=== PATIENT | female | born 1960 | race Caucasian/White ===

== ENCOUNTER → 2019-03-03 07:30 | Outpatient (CLI) | payer OTHER, SELFPAY ==
[2019-03-03 07:59] LABS: Basophils % 0.5 % (0.1-2.0); Eosinophils # 0.1 K/mm3 (0.0-0.4); Eosinophils % 1.9 % (0.1-12.0); Hematocrit 43.1 % (37.0-47.0); Hemoglobin 14.1 g/dL (12.2-16.2); Lymphocytes # 1.6 K/mm3 (0.7-4.5); Lymphocytes % 36.6 % (10-50); Mean Corpuscular HGB Conc 32.6 g/dL (31.8-35.4); Mean Corpuscular Hemoglobin 29.8 pg (27.0-31.2); Mean Corpuscular Volume 91.5 fl (81-99); Mean Platelet Volume 8.6 fl (7.4-10.4); Monocytes # 0.4 K/mm3 (0.1-1.0); Monocytes % 8.2 % (1.7-9.3); Neutrophils # 2.2 K/mm3 (1.8-7.8); Neutrophils % 52.7 % (37.0-80.0); Platelet Count 222 K/mm3 (142-424); Red Blood Count 4.72 M/mm3 (4.20-5.40); Red Cell Distribution Width 12.9 % (11.5-17.5); White Blood Count 4.3 K/mm3 (4.8-10.8)
[2019-03-03 08:50] LABS: Alanine Aminotransferase 33 U/L (12-78); Albumin Level 3.6 gm/dL (3.4-5.0); Albumin/Globulin Ratio 1.2 (1.1-1.8); Alkaline Phosphatase 100 U/L (46-116); Anion Gap 9.2 mEq/L (5-15); Aspartate Amino Transferase 18 U/L (15-37); Bilirubin,Total 0.4 mg/dL (0.2-1.0); Blood Urea Nitrogen 22 mg/dL (7-18); Carbon Dioxide 32 mmol/L (21.0-32.0); Chloride 105 mmol/L (98-107); Creatinine,Serum 0.91 mg/dL (0.55-1.02); Estimated Glomerular Filt Rate 63 ml/min (>60); GFR (African American) 77 ML/MIN (>60); Glucose 99 mg/dL (74-106); Potassium 4.2 mmoL/L (3.5-5.1); Sodium 142 mmol/L (136-145); Total Protein,Serum 6.6 gm/dL (6.4-8.2)
[2019-03-04 12:34] LABS: Vitamin D 25 Hydroxy 25.9 ng/mL (30.0-100.0)
== END ==
PROVIDERS: Visit Provider Internal Medicine Rheumatology
DX: M19.90 Unspecified osteoarthritis, unspecified site (principal); M54.5 Low back pain; M85.50 Aneurysmal bone cyst, unspecified site; Z15.89 Genetic susceptibility to other disease; E55.9 Vitamin D deficiency, unspecified
CPT/HCPCS: 36415; 80053; 82652; 85025

== ENCOUNTER → 2019-08-04 11:48 | Outpatient (CLI) | payer OTHER, SELFPAY ==
--- NOTE | 2019-08-04 12:03 | XR_ITS ---
PROCEDURE: XR CERVICAL SPINE 5V CLINICAL INDICATION: DISORDER OF NECK Posterior neck pain and tenderness COMPARISON: No exams were available for comparison FINDINGS: Normal alignment. There is mild degenerative disc disease at C4-C5 there is minimal foraminal narrowing on the left at C4-C5. No fracture or dislocation. No lytic or blastic change. No evidence of cervical rib. IMPRESSION: Mild degenerative disc disease with mild left foraminal narrowing at C4-C5 Dictated by: Dread Sullivan MD 08/04/2019 13:15 Electronically signed by Dread Sullivan MD in [facility] 08/04/2019 13:15
== END ==
PROVIDERS: PCP Family Medicine; Visit Provider Family Medicine
DX: M53.82 Other specified dorsopathies, cervical region (principal)
CPT/HCPCS: 72050

== ENCOUNTER → 2020-05-18 11:02 | Outpatient (CLI) | payer OTHER, SELFPAY ==
[2020-05-19 15:24] LABS: Covid-19 Nasal PCR Sendout Lex Not Detected
== END ==
PROVIDERS: PCP Nurse Practitioner Family; Referring Provider Nurse Practitioner Family; Visit Provider Nurse Practitioner Family
DX: Z03.818 Encounter for observation for suspected exposure to other biological agents ruled out (principal)
CPT/HCPCS: U0004

== ENCOUNTER 2020-07-29 05:21 | Observation (INO) | payer OTHER, SELFPAY ==
[2020-07-29] VITALS (10 sets, daily range): BP systolic 126–225; BP diastolic 63–129; PULSE 56–87; RESP 16–22; TEMP 36.5–36.7; O2SAT 94–99; BMI 24.3; BMI 21.9
--- NOTE | 2020-07-29 06:06 | PC.NURSE ---
During MD assessing pt, pt grabed at MD's arm and scratched him. Exposer protocol initiated by brew house supervisor. MD requesting pt to leave ED.
--- NOTE | 2020-07-29 06:12 | HMH.EDGENADL ---
ED Disposition Clinical Impression: Urinary tract obstruction by kidney stone, Hydronephrosis, right Disposition: Admitted As Inpatient Condition on Discharge: Good Instructions: DI for Low Back Pain Referrals: PCP,No [Primary Care Provider] - - Critical Care Critical Care Time: No Attestation: On 07/29/20, the high probability of a clinically significant, sudden or life threatening deterioration of the following system(s) required my full and direct attention, intervention and personal management. The time I documented below is in addition to time spent performing reported procedures but includes the following listed in this critical care notation. Medical Decision Making - Medical Records Medical records reviewed: Yes: I reviewed the patient's medical records. - Paolo Inquiry Pt receiving controlled substance: No Vital Signs: 07/29/20 05:21 07/29/20 08:00 Temperature 97.7 F Temperature Source Oral Pulse Rate [Left Radial] 62 70 Respiratory Rate 20 16 Blood Pressure [Right Arm] 139/71 135/63 Blood Pressure Mean [Right Arm] 93 87 Blood Pressure Source [Right Arm] Automatic Cuff Automatic Cuff Blood Pressure Position [Right Arm] Supine Supine 02 Sat by Pulse Oximetry 99 94 L Oxygen Delivery Method Room Air - Lab Data Lab results reviewed: Yes: I reviewed the patient's lab results. Lab Results 07/29/20 07:39: WBC 6.2, RBC 5.21, Hgb 15.9, Hct 46.6, MCV 89.4, MCH 30.6, MCHC 34.2, RDW 13.3, Plt Count 258, MPV 9.2, Neut % (Auto) 63.3, Lymph % (Auto) 27.6, [place] % (Auto) 6.7, Eos % (Auto) 1.9, Baso % (Auto) 0.4, Neut # (Auto) 3.9, Lymph # (Auto) 1.7, [place] # (Auto) 0.4, Eos # (Auto) 0.1, Baso # (Auto) 0.0 07/29/20 07:39: Sodium 140, Potassium 4.1, Chloride 108 H, Carbon Dioxide 22, Anion Gap 14.1, BUN 22 H, Creatinine 0.80, Estimated Creat Clear 86, Estimated GFR 73, Est GFR ( Amer) 89, Glucose 137 H, Calcium 9.9, Total Bilirubin 0.5, AST 42 H, ALT 41, Alkaline Phosphatase 122, Total Protein 7.8, Albumin 4.7, Globulin 3.1, Albumin/Globulin Ratio 1.5 Result diagrams: 07/29/20 07:39 07/29/20 07:39 Orders (Tests/Meds): ED MEDICATIONS Discontinued Medications Generic Name Dose Route Start Last Admin Trade Name Cosmo PRN Reason Stop Dose Admin Diazepam 5 mg 07/29/20 05:49 07/29/20 06:05 Diazepam 10mg/2ml Syringe IM 07/29/20 05:50 5 mg ONCE ONE Administration Hydromorphone HCl 1 mg 07/29/20 06:42 07/29/20 06:48 Hydromorphone 2mg/Ml Syringe IV 07/29/20 06:43 1 mg ONCE ONE Administration Hydromorphone HCl 1 mg 07/29/20 08:12 07/29/20 07:41 Hydromorphone 2mg/Ml Syringe IV 07/29/20 08:13 1 mg ONCE ONE Administration Morphine Sulfate 4 mg 07/29/20 05:49 07/29/20 06:05 Morphine 2mg/Ml Syringe IM 07/29/20 05:50 4 mg ONCE ONE Administration Ondansetron HCl 8 mg 07/29/20 08:12 07/29/20 07:41 Ondansetron 4mg/2ml Vial IV 07/29/20 08:13 8 mg ONCE ONE Administration ORDERS Category Date Time Status CT lumbar spine wo con Stat Cat Scan 07/29/20 06:42 Taken UA [Urinalysis and Microscopic] Stat Lab 07/29/20 05:50 Ordered Medical Decision Narrative: 60-year-old female presenting with back pain. Injured me on arrival so physical exam was brief but was enough to obtain severity of her back pain with which this prompted CT imaging of her L-spine. The L-spine itself was unremarkable however she does have a 7 mm obstructing stone at the right UPJ with hydronephrosis. Her creatinine and CBC are urinalysis is pending. She received 4 mg of IV morphine, 5 mg of IV Valium and 1 mg of IV Dilaudid for pain control as well as a liter of IV fluids. I have also spoken to the admitting physician to admit her for urology consultation and further work-up and management. Patient remained stable in the ED. General Adult HPI - General Chief complaint: Back Pain/Injury Stated complaint: back pain Time Seen by Provider: 07/29/20 06:00 Mode of Arrival:
--- NOTE | 2020-07-29 06:42 | CT_ITS ---
PROCEDURE: CT LUMBAR SPINE WO CON CLINICAL HISTORY: back pain after picking up toddler Right-sided back pain after lifting injury COMPARISON: No exams were available for comparison TECHNIQUE: Axial images obtained with sagittal and coronal reformats. All CT scans at the facility use one or more dose reduction, viz: automated exposure control, ma/kV adjustment per patient size (including targeted exams where dose is matched to indication, i.e. head), or iterative reconstruction technique. FINDINGS: Normal alignment. No acute fracture or dislocation. No lytic or blastic change There is mild bulging disc at L4-5 with mild facet hypertrophic change. Bulging disc is present at L5-S1 slightly eccentric toward the right. Facet arthropathy also noted at that level worse on the right. There is a 7 mm left proximal ureteral stone at the ureteropelvic junction with mild left-sided hydronephrosis. Punctate small stones are present in the kidneys. Vascular calcifications are present in the pelvis. IMPRESSION: 1. Bulging disc with facet arthritic changes at L4-5 and L5-S1. 2. 7 mm obstructing left UPJ stone with bilateral nephrolithiasis. Dictated by: Dread Sullivan MD 07/29/2020 10:58 Dread Sullivan MD in [facility] 07/29/2020 10:58
--- NOTE | 2020-07-29 07:32 | PC.NURSE ---
Dr Garcia on with Vrad
[2020-07-29 07:49] LABS: Basophils % 0.4 % (0.1-2.0); Eosinophils # 0.1 K/mm3 (0.0-0.4); Eosinophils % 1.9 % (0.1-12.0); Hematocrit 46.6 % (37.0-47.0); Hemoglobin 15.9 g/dL (12.2-16.2); Lymphocytes # 1.7 K/mm3 (0.7-4.5); Lymphocytes % 27.6 % (10-50); Mean Corpuscular HGB Conc 34.2 g/dL (31.8-35.4); Mean Corpuscular Hemoglobin 30.6 pg (27.0-31.2); Mean Corpuscular Volume 89.4 fl (81-99); Mean Platelet Volume 9.2 fl (7.4-10.4); Monocytes # 0.4 K/mm3 (0.1-1.0); Monocytes % 6.7 % (1.7-9.3); Neutrophils # 3.9 K/mm3 (1.8-7.8); Neutrophils % 63.3 % (37.0-80.0); Platelet Count 258 K/mm3 (142-424); Red Blood Count 5.21 M/mm3 (4.20-5.40); Red Cell Distribution Width 13.3 % (11.5-17.5); White Blood Count 6.2 K/mm3 (4.8-10.8)
[2020-07-29 07:58] LABS: Alanine Aminotransferase 41 U/L (12-78); Albumin Level 4.7 g/dl (3.5-5.0); Albumin/Globulin Ratio 1.5 (1.1-1.8); Alkaline Phosphatase 122 U/L (38-126); Anion Gap 14.1 mEq/L (5-15); Aspartate Amino Transferase 42 U/L (14-36); Bilirubin,Total 0.5 mg/dl (0.2-1.3); Blood Urea Nitrogen 22 mg/dl (7-17); Calcium 9.9 mg/dl (8.4-10.2); Carbon Dioxide 22 mmol/L (22.0-30.0); Chloride 108 mmol/L (98-107); Creatinine Clearance Estimated 86 mL/min (50-200); Estimated Glomerular Filt Rate 73 ml/min (>60); GFR (African American) 89 ML/MIN (>60); Globulin 3.1 g/dL (1.3-3.2); Glucose 137 mg/dl (74-100); Potassium 4.1 mmoL/L (3.5-5.1); Sodium 140 mmol/L (136-145); Total Protein,Serum 7.8 g/dl (6.3-8.2)
--- NOTE | 2020-07-29 08:23 | PC.NURSE ---
Dr Livingston was called per cake press operator helper message left on voicemail
--- NOTE | 2020-07-29 08:34 | PC.NURSE ---
speaking with dr. quintana
--- NOTE | 2020-07-29 08:41 | PC.NURSE ---
Dr Garcia spoke with Dr Livingston , he will see her tomorrow
--- NOTE | 2020-07-29 09:00 | PC.NURSE ---
called floor pt ready for admission
[2020-07-29 09:07] LABS: Coronavirus 19 IgG Antibody Negative (Negative); Coronavirus 19 IgM Antibody Negative (Negative)
--- NOTE | 2020-07-29 09:29 | PC.NURSE ---
floor called pt ready for admission
--- NOTE | 2020-07-29 09:31 | HMH.PHAVTE ---
[facility] VTE Monitoring - Patient Demographics Admission date: 07/29/20 Report Date: 07/29/20 Time: 09:31 Allergies/Adverse Reactions: Patient Allergies Sulfa (Sulfonamide Antibiotics) Allergy (Verified 05/30/18 09:31) Height: 1.73 m Weight: 72.575 kg Patient Problems: Current Active Problems Urinary tract obstruction by kidney stone (Acute) Hydronephrosis, right (Acute) - VTE Risk Labs: VTE Related Lab Results Hgb 15.9 g/dL (12.2-16.2) 07/29/20 07:39 Hct 46.6 % (37.0-47.0) 07/29/20 07:39 Plt Count 258 K/mm3 (142-424) 07/29/20 07:39 BUN 22 mg/dl (7-17) H 07/29/20 07:39 Creatinine 0.80 mg/dl (0.52-1.04) 07/29/20 07:39 Estimated Creat Clear 86 mL/min (50-200) 07/29/20 07:39 - Prophylaxis VTE Prophylaxis Ordered?: Yes Types of VTE Prophylaxis: TEDS Knee High Location of Applied Device: Bilateral Lower Extremeties
--- NOTE | 2020-07-29 09:53 | PC.NURSE ---
Spoke with Violette about admission
--- NOTE | 2020-07-29 10:13 | PC.NURSE ---
report to tad albert
--- NOTE | 2020-07-29 10:14 | PC.NURSE ---
pt to med surg with Jordan Quevedo RN
--- NOTE | 2020-07-29 12:44 | HMH.PHAINT ---
MEDICATION RECONCILIATION COMPLETED ON PATIENT USING EXTERNAL FILL HISTORY FROM PHARMACY. -MARISOL CHAPIN, CECILIAD
--- NOTE | 2020-07-29 18:08 | HMH.HP ---
*Admission Date: 07/29/20 *Chief complaint: kidney stone *History of present illness: 60-year-old female presenting with back pain. Injured me on arrival so physical exam was brief but was enough to obtain severity of her back pain with which this prompted CT imaging of her L-spine. The L-spine itself was unremarkable however she does have a 7 mm obstructing stone at the right UPJ with hydronephrosis. Her creatinine and CBC are urinalysis is pending. She received 4 mg of IV morphine, 5 mg of IV Valium and 1 mg of IV Dilaudid for pain control as well as a liter of IV fluids. I have also spoken to the admitting physician to admit her for urology consultation and further work-up and management. Patient remained stable in the ED. [facility] History Medical History: Denies:: Cancer, Diabetes Mellitus Type 1, Diabetes Mellitus Type 2, MRSA *Have you ever received a pneumonia vaccine?: (unsure) *Have you received a flu vaccine this season?: (unsure) Other Surgeries: Yes: Hysterectomy-Partial Amputation: No Fractures: No - *Social History Smoking Status: Former smoker Alcohol Intake: current Alcohol Intake Frequency:: holidays/special occasions only *Occupational Status:: other *Travel in the last 8 weeks: None Family Hx:: Non-contributory Review of Systems - Constitutional Denies anorexia - Eyes Denies change in vision - ENT Denies abnormal hearing - *Cardiovascular Denies chest pain - *Respiratory Denies chest congestion - *Gastrointestinal Reports abdominal pain - *Genitourinary Denies abnormal periods, Denies bleeding between periods - *Musculoskeletal Reports joint pain, Reports back pain, Reports limited joint movement, Reports stiffness - Integumentary/Breasts Denies yellowing of the skin - *Neurologic Denies abnormal walking, Denies abnormal speech, Denies seizure-like activity - Psychiatric Denies change in appetite - Endocrine Denies cold intolerance - Hematologic/Lymphatic Denies easy bleeding - Allergic/Immunologic Denies hives Meds Home Medications Medication Instructions Recorded Confirmed Type estradioL [Estradiol] 0.5 mg PO Q48H 05/30/18 07/29/20 History Baclofen [Lioresal 10mg tablet] 5 - 10 mg PO TIDP PRN 07/29/20 07/29/20 History Fluticasone Propionate 1 spray NS BID 07/29/20 07/29/20 History Nabumetone 1,500 mg PO DAILY 07/29/20 07/29/20 History Allergies Allergy/AdvReac Type Severity Reaction Status Date / Time Sulfa (Sulfonamide Allergy Verified 05/30/18 09:31 Antibiotics) Exam Vital signs and Labs for Last 24 Hours: Temp Pulse Resp BP Pulse Ox 98.0 F 72 18 128/70 98 07/29/20 14:10 07/29/20 14:10 07/29/20 14:10 07/29/20 14:10 07/29/20 14:10 Laboratory Results - last 24 hr 07/29/20 07:39: WBC 6.2, RBC 5.21, Hgb 15.9, Hct 46.6, MCV 89.4, MCH 30.6, MCHC 34.2, RDW 13.3, Plt Count 258, MPV 9.2, Neut % (Auto) 63.3, Lymph % (Auto) 27.6, [place] % (Auto) 6.7, Eos % (Auto) 1.9, Baso % (Auto) 0.4, Neut # (Auto) 3.9, Lymph # (Auto) 1.7, [place] # (Auto) 0.4, Eos # (Auto) 0.1, Baso # (Auto) 0.0 07/29/20 07:39: Sodium 140, Potassium 4.1, Chloride 108 H, Carbon Dioxide 22, Anion Gap 14.1, BUN 22 H, Creatinine 0.80, Estimated Creat Clear 86, Estimated GFR 73, Est GFR ( Amer) 89, Glucose 137 H, Calcium 9.9, Total Bilirubin 0.5, AST 42 H, ALT 41, Alkaline Phosphatase 122, Total Protein 7.8, Albumin 4.7, Globulin 3.1, Albumin/Globulin Ratio 1.5 07/29/20 07:39: SARS-CoV-2 IgG Ab (Rapid) Negative, SARS-CoV-2 IgM Ab (Rapid) Negative I & O for Last 24 hours: Intake & Output 07/26/20 07/27/20 07/28/20 07/29/20 23:59 23:59 23:59 23:59 Intake Total 360 / 360 Balance 360 / 360 Weight 140 lb - Constitutional no acute distress, average body habitus - *Routine HEENT Exam Head: Present: normocephalic Eye: Present: EOMI, PERRL ENT: Present: mucous membranes moist - *Routine Neck Exam Present: supple. Absent: lymphadenopathy
--- NOTE | 2020-07-29 20:34 | PC.NURSE ---
No acute changes this evening. Pain med x 1 per mar. CB in reach. have made pt aware that a urine sample is needed. Verbed understanding. Have provided warm blankets. LR at 75 ML/HR.
[2020-07-29 23:57] LABS: Microscopic, Urine URINE MICROSCOPIC (MICROSCOPIC)
[2020-07-30 00:05] LABS: Appearance,Urine SL CLOUDY (Clear); Bilirubin,Urine Negative (Negative); Blood, Urine 3+ (Negative); Color,Urine YELLOW (Yellow); Glucose,Urine (UA) Negative (Negative); Ketones,Urine Negative (Negative); Leukocyte Esterase,Urine Negative (Negative); Nitrate,Urine Negative (Negative); Protein,Urine TRACE (Negative); Urobilinogen,Urine 0.2 EU/dl (0.2)
[2020-07-30 00:26] LABS: Mucus,Urine 4+ /lpf
[2020-07-30 04:00] VITALS: BP 105/65; PULSE 70; RESP 16; TEMP 36.4; O2SAT 97
--- NOTE | 2020-07-30 04:06 | PC.NURSE ---
Pt A&OX4 lungs CTA. pt has been medicated for pain X 3 this shift per SEP. UA was obtained this shift. pt has ambulated to BR t/o shift. pt has slept quietly this shift. Pt has been NPo since midnight for Yara consult
[2020-07-30 06:52] VITALS: BMI 22.0
[2020-07-30 07:20] LABS: Eosinophils # 0.1 K/mm3 (0.0-0.4); Lymphocytes # 1.9 K/mm3 (0.7-4.5); Monocytes # 0.4 K/mm3 (0.1-1.0); Neutrophils # 5.2 K/mm3 (1.8-7.8); Platelet Count 177 K/mm3 (142-424); White Blood Count 7.6 K/mm3 (4.8-10.8)
[2020-07-30 07:32] LABS: Anion Gap 8.1 mEq/L (5-15); Blood Urea Nitrogen 19 mg/dl (7-17); Carbon Dioxide 32 mmol/L (22.0-30.0); Chloride 104 mmol/L (98-107); Creatinine Clearance Estimated 75 mL/min (50-200); Estimated Glomerular Filt Rate 73 ml/min (>60); GFR (African American) 89 ML/MIN (>60); Glucose 99 mg/dl (74-100); Potassium 4.1 mmoL/L (3.5-5.1); Sodium 140 mmol/L (136-145)
[2020-07-30 07:34] LABS: Calcium 8.7 mg/dl (8.4-10.2)
[2020-07-30 07:47] VITALS: BP 110/68; PULSE 80; RESP 22; TEMP 36.6; O2SAT 98
[2020-07-30 07:47] LABS: Basophils % 0.5 % (0.1-2.0); Eosinophils % 1.4 % (0.1-12.0); Hematocrit 40.3 % (37.0-47.0); Lymphocytes % 24.7 % (10-50); Mean Corpuscular HGB Conc 32.7 g/dL (31.8-35.4); Mean Corpuscular Hemoglobin 30.5 pg (27.0-31.2); Mean Corpuscular Volume 93.4 fl (81-99); Mean Platelet Volume 9.9 fl (7.4-10.4); Monocytes % 5.1 % (1.7-9.3); Neutrophils % 68.3 % (37.0-80.0); Red Blood Count 4.31 M/mm3 (4.20-5.40); Red Cell Distribution Width 13.3 % (11.5-17.5)
[2020-07-30 07:53] LABS: Hemoglobin 13.2 g/dL (12.2-16.2)
--- NOTE | 2020-07-30 09:18 | PC.NURSE ---
Patient states that her pain is still uncomfortable. Giving toradol. Patient asked to not be given the dilaudid as it made her very nauseous and made her itch. Will treat accordingly and continue to monitor.
--- NOTE | 2020-07-30 11:10 | PC.NURSE ---
Report received from Mana Garza RN.
--- NOTE | 2020-07-30 11:35 | PC.NURSE ---
Pt. transferred to room 280 via wheelchair, belonging to room with pt.
--- NOTE | 2020-07-30 12:50 | PC.NURSE ---
Dr. Livingston in room at this time.
--- NOTE | 2020-07-30 13:14 | HMH.PHAINT ---
HOME MEDICATION RECONCILIATION COMPLETED USING LIST FROM [facility]
[2020-07-30 15:27] LABS: C-Reactive Protein 2.2 mg/L (0-4)
[2020-07-30 15:41] LABS: Erythrocyte Sedimentation Rate 13 mm/hr (0-30)
--- NOTE | 2020-07-30 15:45 | PC.NURSE ---
Routine assessment completed. Pt. A&Ox4. Lungs CTA, Heart at RR. BS present x4 quadrants. Pt. reports pain at 8/10, in right lower back. Toradol given, see EMAR. No edema noted. Pt. denies further needs, will continue to monitor.
[2020-07-30 16:00] VITALS: BP 134/79; PULSE 76; RESP 18; TEMP 37; O2SAT 99
--- NOTE | 2020-07-30 16:23 | HMH.CONS ---
*Admission Date: 07/29/20 *Reason for consult:: 7 mm left proximal ureteral stone *History of present illness: Patient is a 60-year-old white female who presented to the emergency room on July 29 with back pain. Patient states that she was placing an back in her crib when she began having severe lower back pain. She had not had any recent back pain until this incident. She states that it hurts to walk and to raise her right leg and her back is very tender to touch as palpation will send her into spasms. She is not able to move very well in the bed but points to an area on her friend in the right flank and low back of her pain. States she has had some nausea and dry heaves. She has been n.p.o. for possible urologic procedure. CT scan was performed of the lumbar spine. It showed that she had a 7 mm proximal ureteral stone with some mild hydronephrosis but she denies any pain on her left side. CT was also notable for bulging disc with arthritic changes at L4-5 and L5-S1. Her urinalysis showed 3+ blood 10-20 epithelial cells. [facility] History Medical History: Denies:: Cancer, Diabetes Mellitus Type 1, Diabetes Mellitus Type 2, MRSA *Have you ever received a pneumonia vaccine?: (unsure) *Have you received a flu vaccine this season?: (unsure) Other Surgeries: Yes: Hysterectomy-Partial Amputation: No Fractures: No - *Social History Smoking Status: Former smoker Alcohol Intake: current Alcohol Intake Frequency:: holidays/special occasions only *Occupational Status:: other *Travel in the last 8 weeks: None Family Hx:: Non-contributory Review of Systems - Review of Systems Review of systems:: pertinent systems reviewed and negative unless documented below - *Neurologic Denies abnormal walking, Denies abnormal hearing, Denies abnormal speech, Denies seizure-like activity Meds Home Medications Medication Instructions Recorded Confirmed Type estradioL [Estradiol] 0.5 mg PO Q48H 05/30/18 07/29/20 History Baclofen [Lioresal 10mg tablet] 5 - 10 mg PO TIDP PRN 07/29/20 07/29/20 History Fluticasone Propionate 2 spray NS BID 07/29/20 07/30/20 History Nabumetone 1,500 mg PO DAILY 07/29/20 07/29/20 History Allergies Allergy/AdvReac Type Severity Reaction Status Date / Time Sulfa (Sulfonamide Allergy Verified 05/30/18 09:31 Antibiotics) Exam Vital signs and Labs for Last 24 Hours: Temp Pulse Resp BP Pulse Ox 97.9 F 80 22 110/68 98 07/30/20 07:47 07/30/20 07:47 07/30/20 07:47 07/30/20 07:47 07/30/20 07:47 Laboratory Results - last 24 hr 07/29/20 23:43: Urine Color Yellow, Urine Appearance Sl cloudy, Urine pH 7.0, Ur Specific [place] 1.020, Urine Protein Trace, Urine Glucose (UA) Negative, Urine Ketones Negative, Urine Blood 3+, Urine Nitrate Negative, Urine Bilirubin Negative, Urine Urobilinogen 0.2, Ur Leukocyte Esterase Negative, Urine RBC 5-10, Ur Squamous Epith Cells 10-20, Urine Mucus 4+ 07/30/20 06:48: WBC 7.6, RBC 4.31, Hgb 13.2 D, Hct 40.3, MCV 93.4, MCH 30.5, MCHC 32.7, RDW 13.3, Plt Count 177 D, MPV 9.9, Neut % (Auto) 68.3, Lymph % (Auto) 24.7, [place] % (Auto) 5.1, Eos % (Auto) 1.4, Baso % (Auto) 0.5, Neut # (Auto) 5.2, Lymph # (Auto) 1.9, [place] # (Auto) 0.4, Eos # (Auto) 0.1, Baso # (Auto) 0.0 07/30/20 06:48: Sodium 140, Potassium 4.1, Chloride 104, Carbon Dioxide 32 H D, Anion Gap 8.1, BUN 19 H, Creatinine 0.80, Estimated Creat Clear 75, Estimated GFR 73, Est GFR ( Amer) 89, Glucose 99 D, Calcium 8.7 D 07/30/20 06:48: ESR 13 07/30/20 06:48: C-Reactive Protein 2.2 I & O for Last 24 hours: Intake & Output 07/27/20 07/28/20 07/29/20 07/30/20 23:59 23:59 23:59 23:59 Intake Total 1160 / 1160 1822 / 1822 Balance 1160 / 1160 1821 Weight 63.503 kg 63.7 kg Narrative: Well-nourished white female lying in a guarded position Pupils equal round react light His normocephalic Neck is symmetric Normal respiratory effort Abdomen normal visual inspection There is di
--- NOTE | 2020-07-30 16:40 | PC.NURSE ---
Dr. Sosa in room.
--- NOTE | 2020-07-30 16:41 | HMH.ORTHOCON ---
*Admission Date: 07/29/20 *Reason for consult:: acute low back and right flank pain *History of present illness: 60yo F with acute low back and right flank pain that began 2 days ago. She was placing her granddaughter (~10 months) back into her playpen when she felt a sudden pain in the ride side/low back. She tried to rest overnight but the pain did not improve, so she presented to the ER for evaluation. She reports pain, sharp and intermittent in nature, without radiation down either leg. No numbness or tingling reported in BLE. She has had kidney stones in the past but no pain this severe. Denies fevers or chills, no abdominal pain or dysuria, no hematuria or hematochezia. No change in her diet or activity recently. CT scan of the lumbar spine revealed a 7mm proximal ureteral stone with mild hydronephrosis; denies pain on left side. Mild bulging disc at L4-L5 and L5-S1 with mild facet hypertrophy as well. [facility] History I have reviewed the patient's past medical history: Yes Medical History: Denies:: Cancer, Diabetes Mellitus Type 1, Diabetes Mellitus Type 2, MRSA *Have you ever received a pneumonia vaccine?: (unsure) *Have you received a flu vaccine this season?: (unsure) Other Surgeries: Yes: Hysterectomy-Partial Amputation: No Fractures: No - *Social History Smoking Status: Former smoker Alcohol Intake: current Alcohol Intake Frequency:: holidays/special occasions only *Occupational Status:: other *Travel in the last 8 weeks: None Family Hx:: Non-contributory Review of Systems - Review of Systems Review of systems:: pertinent systems reviewed and negative unless documented below - *Neurologic Denies abnormal walking, Denies abnormal hearing, Denies abnormal speech, Denies seizure-like activity Meds Home Medications Medication Instructions Recorded Confirmed Type estradioL [Estradiol] 0.5 mg PO Q48H 05/30/18 07/29/20 History Baclofen [Lioresal 10mg tablet] 5 - 10 mg PO TIDP PRN 07/29/20 07/29/20 History Fluticasone Propionate 2 spray NS BID 07/29/20 07/30/20 History Nabumetone 1,500 mg PO DAILY 07/29/20 07/29/20 History Allergies Allergy/AdvReac Type Severity Reaction Status Date / Time Sulfa (Sulfonamide Allergy Verified 05/30/18 09:31 Antibiotics) Exam Vital signs and Labs for Last 24 Hours: Temp Pulse Resp BP Pulse Ox 97.9 F 80 22 110/68 98 07/30/20 07:47 07/30/20 07:47 07/30/20 07:47 07/30/20 07:47 07/30/20 07:47 Laboratory Results - last 24 hr 07/29/20 23:43: Urine Color Yellow, Urine Appearance Sl cloudy, Urine pH 7.0, Ur Specific [place] 1.020, Urine Protein Trace, Urine Glucose (UA) Negative, Urine Ketones Negative, Urine Blood 3+, Urine Nitrate Negative, Urine Bilirubin Negative, Urine Urobilinogen 0.2, Ur Leukocyte Esterase Negative, Urine RBC 5-10, Ur Squamous Epith Cells 10-20, Urine Mucus 4+ 07/30/20 06:48: WBC 7.6, RBC 4.31, Hgb 13.2 D, Hct 40.3, MCV 93.4, MCH 30.5, MCHC 32.7, RDW 13.3, Plt Count 177 D, MPV 9.9, Neut % (Auto) 68.3, Lymph % (Auto) 24.7, [place] % (Auto) 5.1, Eos % (Auto) 1.4, Baso % (Auto) 0.5, Neut # (Auto) 5.2, Lymph # (Auto) 1.9, [place] # (Auto) 0.4, Eos # (Auto) 0.1, Baso # (Auto) 0.0 07/30/20 06:48: Sodium 140, Potassium 4.1, Chloride 104, Carbon Dioxide 32 H D, Anion Gap 8.1, BUN 19 H, Creatinine 0.80, Estimated Creat Clear 75, Estimated GFR 73, Est GFR ( Amer) 89, Glucose 99 D, Calcium 8.7 D 07/30/20 06:48: ESR 13 07/30/20 06:48: C-Reactive Protein 2.2 I & O for Last 24 hours: Intake & Output 07/28/20 07/29/20 07/30/20 07/31/20 11:59 11:59 11:59 11:59 Intake Total 2982 / 2982 Balance 2982 / 2982 Weight 140 lb 140 lb 6.951 oz - Constitutional no acute distress - *Routine HEENT Exam Head: Present: normocephalic Eye: Present: EOMI ENT: Present: mucous membranes moist - *Routine Neck Exam Present: supple, trachea midline - *Routine Respiratory Exam Absent: respiratory distress, wheezes - *Routine Cardiovascular Exa
--- NOTE | 2020-07-30 18:00 | PC.NURSE ---
Per Jennifer Morel pt. approved for MRI study. approval given per telephone call.
--- NOTE | 2020-07-30 19:23 | PC.NURSE ---
Report given to oJrdan Castro RN.
[2020-07-30 20:37] VITALS: BP 123/73; PULSE 78; RESP 16; TEMP 37.2; O2SAT 97
[2020-07-31 04:00] VITALS: BP 116/70; PULSE 63; RESP 18; TEMP 36.2; O2SAT 93
--- NOTE | 2020-07-31 04:05 | PC.NURSE ---
Pt has slept in intervals during this shift. A&Ox4, BLT lung sounds clear throughout, Pt has voided per BSC many times this shift. IV infusing well. PT denies headache, N/V, SOA. Pt was medicated per MAR for pain during the shift.
--- NOTE | 2020-07-31 06:00 | XR_ITS ---
PROCEDURE: XR KUB CLINICAL INDICATION: kidney stone COMPARISON: No exams were available for comparison FINDINGS: 7 mm stone is present overlying the left upper quadrant just to the left of the L2 transverse process consistent with a left UPJ stone seen on recent CT scan. There is a mild amount of retained colonic feces. IMPRESSION: 7 mm left UPJ stone Dictated by: Dread Sullivan MD 07/31/2020 07:45 Dread Sullivan MD in [facility] 07/31/2020 07:45
--- NOTE | 2020-07-31 07:45 | PC.NURSE ---
PT ASSESSED AT THIS TIME. C/O RICHEY AND R FLANK PAIN THAT IS SHARP AND SPASMS. RATES PAIN 6/10 ON VERBAL SCALE. BILATERAL LUNG SOUNDS CLEAR. NO EDEMA NOTED. PT VOIDING CLEAR STRAW URINE WITHOUT DIFFICULTY. URINE IS BEING STRAINED NO STONES EXPRESSED AT THIS TIME. WILL CONTINUE TO OBSERVE.
--- NOTE | 2020-07-31 07:54 | PC.NURSE ---
Pt leaving department at this time with Sun Arechiga from radiology.
[2020-07-31 08:00] VITALS: O2SAT 99
--- NOTE | 2020-07-31 08:05 | PC.NURSE ---
taken off floor at this time for MRI
[2020-07-31 08:07] VITALS: BP 118/66; PULSE 74; RESP 16; TEMP 36.7; O2SAT 97
--- NOTE | 2020-07-31 08:07 | MR_ITS ---
PROCEDURE: MR LUMBAR SPINE WO CON CLINICAL INDICATION: LOW BACK PAIN Right-sided low back pain COMPARISON: CT CT LUMBAR SPINE WO CON from 07/29/2020 TECHNIQUE: Standard multiplanar multiecho sequences are performed without contrast. 3-D MIP and myelographic images are also rendered and reviewed FINDINGS: The spinal cord ends at the L1-L2 level. L1-L2: Unremarkable. L2-L3: Unremarkable. L3-L4: Minimal bulging disc with mild facet and ligamentum hypertrophy. L4-5: Minimal bulging disc with mild facet and ligamentum hypertrophy. L5-S1: Bulging disc with facet and ligamentum hypertrophy with mild bilateral foraminal narrowing IMPRESSION: Mild degenerative changes with minimal bulging disc and facet and ligamentum hypertrophy. No extruded herniated disc or bony canal stenosis evident. Dictated by: Dread Sullivan MD 07/31/2020 13:41 Dread Sullivan MD in [facility] 07/31/2020 13:41
--- NOTE | 2020-07-31 08:07 | MR_ITS ---
PROCEDURE: MR PELVIS WO CON CLINICAL INDICATION: LOW BACK PAIN Right-sided pain COMPARISON: CR XR KUB from 07/31/2020 TECHNIQUE: Routine multiplanar multi echo sequences are performed without gadolinium enhancement. FINDINGS: No fracture or dislocation is evident. There is a small right hip joint effusion. No evidence of avascular necrosis. There is slight increased T2 signal along the greater trochanter on the right which could be seen with trochanteric bursitis. There is a mild amount of subcutaneous edema about the hip on both sides. No pelvic mass or abnormal fluid collection. There has been a prior hysterectomy. The SI joints have an unremarkable appearance. IMPRESSION: Small right hip joint effusion. Possible right trochanteric bursitis Otherwise negative MRI of the pelvis Dictated by: Dread Sullivan MD 07/31/2020 14:13 Dread Sullivan MD in [place] 07/31/2020 14:13
--- NOTE | 2020-07-31 10:06 | PC.NURSE ---
dr. marquez at bedside at this time. new orders for diet.
--- NOTE | 2020-07-31 13:26 | HMH.ACPN2 ---
Internal Medicine - PN: Subj *Date: 07/31/20 *Time: 21:37 Interval history: pt went to mri this am - saw again in pm - doing better on meds -less pain - Exam Vital signs and Labs for Last 24 Hours: Temp Pulse Resp BP Pulse Ox 98.0 F 74 16 118/66 97 07/31/20 08:07 07/31/20 08:07 07/31/20 08:07 07/31/20 08:07 07/31/20 08:07 Laboratory Results - last 24 hr 07/30/20 06:48: ESR 13 07/30/20 06:48: C-Reactive Protein 2.2 I & O for Last 24 hours: Intake & Output 07/29/20 07/30/20 07/31/20 08/01/20 11:59 11:59 11:59 11:59 Intake Total 2982 / 2982 Output Total 3200 / 3200 Balance 2982 / 2982 -3200 / -3200 Weight 140 lb 140 lb 6.951 oz - Constitutional no acute distress - *Routine HEENT Exam Head: Present: normocephalic Eye: Present: EOMI, PERRL ENT: Present: mucous membranes dry - *Routine Neck Exam Present: supple - *Routine Respiratory Exam Present: CTA bilaterally - *Routine Cardiovascular Exam Present: RRR, murmur - *Routine Abdominal Exam Present: soft - *Routine Extremities Exam Present: cyanosis - *Routine Skin Exam Present: intact - *Routine Neurological Exam Present: alert, oriented X3, CN II-XII intact - Routine Psychiatric Exam Present: normal affect Assessment and Plan (1) Hydronephrosis, right Status: Acute Category: Medical Code(s): N13.30 - Unspecified hydronephrosis (2) Urinary tract obstruction by kidney stone Status: Acute Category: Medical Code(s): N20.0 - Calculus of kidney; N13.8 - Other obstructive and reflux uropathy (3) Low back pain Status: Acute Qualifiers: Chronicity: unspecified Back pain laterality: left Sciatica presence: with sciatica Sciatica laterality: sciatica of left side Qualified Code(s): M54.42 - Lumbago with sciatica, left side Category: Medical Code(s): M54.5 - Low back pain (4) Ureteral stone with hydronephrosis Status: Acute Category: Medical Code(s): N13.2 - Hydronephrosis with renal and ureteral calculous obstruction
[2020-07-31 16:00] VITALS: BP 112/69; PULSE 67; RESP 20; TEMP 36.6; O2SAT 96
--- NOTE | 2020-07-31 16:14 | HMH.CONFU ---
Internal Medicine - PN: Subj *Date: 07/31/20 *Time: 16:14 Interval history: Patient's pain has improved from yesterday. He is now on steroids per Dr. Sosa. She is also on muscle relaxers and Toradol. He is able to get up and ambulate to the bathroom with minimal difficulty. KUB this morning shows that the 7 mm stone is still in the upper ureter. An MRI was also performed and the report shows some mild disc herniation at L5-S1. Exam Vital signs and Labs for Last 24 Hours: Temp Pulse Resp BP Pulse Ox 98.0 F 74 16 118/66 97 07/31/20 08:07 07/31/20 08:07 07/31/20 08:07 07/31/20 08:07 07/31/20 08:07 I & O for Last 24 hours: Intake & Output 07/28/20 07/29/20 07/30/20 07/31/20 23:59 23:59 23:59 23:59 Intake Total 1160 / 1160 1822 / 1822 360 / 360 Output Total 1400 / 2300 1800 / 1800 Balance 1160 / 1160 422 / -478 -1440 / -1440 Weight 63.503 kg 63.7 kg - Constitutional no acute distress - *Routine HEENT Exam Head: Present: normocephalic Eye: Present: EOMI, PERRL ENT: Present: mucous membranes moist - *Routine Neck Exam Present: full ROM. Absent: lymphadenopathy - *Routine Respiratory Exam Present: other. Absent: accessory muscle use Comments: normal resp effort - *Routine Cardiovascular Exam Present: other Comments: no sob - *Routine Abdominal Exam Present: other. Absent: obese Comments: normal to visual inspection - *Routine Extremities Exam Absent: cyanosis, clubbing, edema - *Routine Neurological Exam Present: alert, oriented X3 Assessment and Plan (1) Hydronephrosis, right Status: Acute Category: Medical Code(s): N13.30 - Unspecified hydronephrosis (2) Urinary tract obstruction by kidney stone Status: Acute Category: Medical Code(s): N20.0 - Calculus of kidney; N13.8 - Other obstructive and reflux uropathy (3) Low back pain Status: Acute Qualifiers: Chronicity: unspecified Back pain laterality: left Sciatica presence: with sciatica Sciatica laterality: sciatica of left side Qualified Code(s): M54.42 - Lumbago with sciatica, left side Category: Medical Code(s): M54.5 - Low back pain (4) Ureteral stone with hydronephrosis Status: Acute Category: Medical Code(s): N13.2 - Hydronephrosis with renal and ureteral calculous obstruction 1. 7 mm left proximal ureteral stone with mild hydronephrosis. Patient is not symptomatic from the stone. She is eating and drinking and nausea has resolved. We discussed lithotripsy of the stone and we will set this up at her earliest convenience. KUB today shows that the stone is still in the upper ureter. 2. Right-sided back pain. MRI does not appear to show an acute finding but will defer to Dr. Sosa. She may just have a severe strain of the muscle in her right upper back and she is responding thus far with steroids and muscle relaxants and Toradol. Anticipate that she will be discharged home tomorrow and recommend follow-up with me next Thursday or Thursday.
--- NOTE | 2020-07-31 17:37 | PC.NURSE ---
DR. HUNT AT BEDSIDE SPEAKING WITH PT. RECOMMENDS PROCEDURE FOR THURSDAY TO BREAK UP STONE IN L KIDNEY. PT DENIES AT THIS TIME.PAIN IS IN RIGHT BACK AND IS THOUGHT TO BE RELATED TO MUSCLE OR POSSIBLE DISC PAIN
--- NOTE | 2020-07-31 19:00 | PC.NURSE ---
REPORT GIVEN TO Jordan BRAMBILA RN.
[2020-07-31 20:32] VITALS: BP 142/69; PULSE 66; RESP 18; TEMP 36.7; O2SAT 96
[2020-07-31 20:34] VITALS: O2SAT 99
[2020-08-01 04:30] VITALS: BP 123/77; PULSE 73; RESP 16; TEMP 36.4; O2SAT 95
--- NOTE | 2020-08-01 04:30 | PC.NURSE ---
Pt has slept throughout this shift. A&O x4, BLT lungs CTA, bowel sounds present in all 4 quadrants, IV sakine locked, Pt has been medicated per MAR for pain this shift, Pt voids per commode without assistance, Pt has abscence of edema. Pt denies headache, SOA, N/V, or pain at this time
--- NOTE | 2020-08-01 07:05 | PC.NURSE ---
Report given to LUIS ANGEL Mcfadden
--- NOTE | 2020-08-01 07:10 | PC.NURSE ---
REPORT RECEIVED FROM Jordan BRAMBILA RN.
[2020-08-01 08:00] VITALS: BP 139/77; PULSE 67; RESP 18; TEMP 36.6; O2SAT 100
--- NOTE | 2020-08-01 08:20 | PC.NURSE ---
PT ASSESSED AT THIS TIME. BILATERAL LUNG SOUNDS. EDEMA ABSENT. PT STATES PAIN IN R LOWER BACK THAT IS A BURNING PAIN AND WITH MOVEMENT IT BEGINS TO SPASM. STATES THAT SHE CAN NOT BEND OVER AT THE WAIST AND IS LIMITED MOTION WHEN MOVING SIDE TO SIDE. DENIES ANY OTHER ISSUES. WILL CONTINUE TO OBSERVE.
--- NOTE | 2020-08-01 08:49 | PC.NURSE ---
DR. LEMONS AT BEDSIDE AT THIS TIME. STATES HE PLANS TO DISCHARGE PT TODAY.
--- NOTE | 2020-08-01 09:12 | HMH.DCSUM ---
General - General Admission date:: 07/29/20 Discharge date: 08/01/20 HPI HPI: 60-year-old female presenting with back pain. Injured me on arrival so physical exam was brief but was enough to obtain severity of her back pain with which this prompted CT imaging of her L-spine. The L-spine itself was unremarkable however she does have a 7 mm obstructing stone at the right UPJ with hydronephrosis. Her creatinine and CBC are urinalysis is pending. She received 4 mg of IV morphine, 5 mg of IV Valium and 1 mg of IV Dilaudid for pain control as well as a liter of IV fluids. I have also spoken to the admitting physician to admit her for urology consultation and further work-up and management. Patient remained stable in the ED. Hospital Course Hospital Course: 60-year-old female presenting with back pain. Injured me on arrival so physical exam was brief but was enough to obtain severity of her back pain with which this prompted CT imaging of her L-spine. The L-spine itself was unremarkable however she does have a 7 mm obstructing stone at the right UPJ with hydronephrosis. Her creatinine and CBC are urinalysis is pending. She received 4 mg of IV morphine, 5 mg of IV Valium and 1 mg of IV Dilaudid for pain control as well as a liter of IV fluids. I have also spoken to the admitting physician to admit her for urology consultation and further work-up and management. Patient remained stable in the ED. 07/29/[address]: FINDINGS: Normal alignment. No acute fracture or dislocation. No lytic or blastic change There is mild bulging disc at L4-5 with mild facet hypertrophic change. Bulging disc is present at L5-S1 slightly eccentric toward the right. Facet arthropathy also noted at that level worse on the right. There is a 7 mm left proximal ureteral stone at the ureteropelvic junction with mild left-sided hydronephrosis. Punctate small stones are present in the kidneys. Vascular calcifications are present in the pelvis. IMPRESSION: 1. Bulging disc with facet arthritic changes at L4-5 and L5-S1. 2. 7 mm obstructing left UPJ stone with bilateral nephrolithiasis. Dictated by: Nate, 07/31/20 KUB XR: FINDINGS: 7 mm stone is present overlying the left upper quadrant just to the left of the L2 transverse process consistent with a left UPJ stone seen on recent CT scan. There is a mild amount of retained colonic feces. IMPRESSION: 7 mm left UPJ stone Dictated by: Nate, 07/31/20 Pelvis MRI: FINDINGS: No fracture or dislocation is evident. There is a small right hip joint effusion. No evidence of avascular necrosis. There is slight increased T2 signal along the greater trochanter on the right which could be seen with trochanteric bursitis. There is a mild amount of subcutaneous edema about the hip on both sides. No pelvic mass or abnormal fluid collection. There has been a prior hysterectomy. The SI joints have an unremarkable appearance. IMPRESSION: Small right hip joint effusion. Possible right trochanteric bursitis Otherwise negative MRI of the pelvis Dictated by: Nate, 07/31/20 LS MRI: FINDINGS: The spinal cord ends at the L1-L2 level. L1-L2: Unremarkable. L2-L3: Unremarkable. L3-L4: Minimal bulging disc with mild facet and ligamentum hypertrophy. L4-5: Minimal bulging disc with mild facet and ligamentum hypertrophy. L5-S1: Bulging disc with facet and ligamentum hypertrophy with mild bilateral foraminal narrowing IMPRESSION: Mild degenerative changes with minimal bulging disc and facet and ligamentum hypertrophy. No extruded herniated disc or bony canal stenosis evident. Dictated by: Nate, Urology has seen and Rec: 1. 7 mm left proximal ureteral stone with mild hydronephrosis. Patient is not symptomatic from the stone. She is eating and drinking and nausea has resolved. We discussed lithotripsy of the stone and we will set this up at her earliest convenience. JOSE
--- NOTE | 2020-08-01 09:54 | P.PN_ITS ---
Internal Medicine - PN: Subj *Date: 07/30/20 *Time: 09:54 Exam Vital signs and Labs for Last 24 Hours: Temp Pulse Resp BP Pulse Ox 97.8 F 67 18 139/77 100 08/01/20 08:00 08/01/20 08:00 08/01/20 08:00 08/01/20 08:00 08/01/20 08:00 I & O for Last 24 hours: Intake & Output 07/29/20 07/30/20 07/31/20 08/01/20 11:59 11:59 11:59 11:59 Intake Total 2982 / 2982 960 / 960 Output Total 3200 / 3200 1800 / 1800 Balance 2982 / 2982 -3200 / -3200 -840 / -840 Weight 140 lb 140 lb 6.951 oz - Constitutional no acute distress - *Routine HEENT Exam Head: Present: normocephalic Eye: Present: PERRL ENT: Present: mucous membranes moist - *Routine Neck Exam Present: supple. Absent: lymphadenopathy - *Routine Respiratory Exam Present: CTA bilaterally - *Routine Cardiovascular Exam Present: RRR - *Routine Abdominal Exam Present: soft, normoactive bowel sounds. Absent: tenderness - *Routine Extremities Exam Present: normal capillary refill. Absent: cyanosis, clubbing, edema - *Routine Skin Exam Present: warm. Absent: rash - *Routine Neurological Exam Present: alert, oriented X3 - Routine Psychiatric Exam Present: normal affect Assessment and Plan (1) Hydronephrosis, right Status: Acute Category: Medical Code(s): N13.30 - Unspecified hydronephrosis (2) Urinary tract obstruction by kidney stone Status: Acute Category: Medical Code(s): N20.0 - Calculus of kidney; N13.8 - Other obstructive and reflux uropathy (3) Low back pain Status: Acute Qualifiers: Chronicity: unspecified Back pain laterality: left Sciatica presence: w ith sciatica Sciatica laterality: sciatica of left side Qualified Code(s): M54.42 - Lumbago with sciatica, left side Category: Medical Code(s): M54.5 - Low back pain (4) Ureteral stone with hydronephrosis Status: Acute Category: Medical Code(s): N13.2 - Hydronephrosis with renal and ureteral calculous obstruction - Assessment and plan all Dx Assessment and Plan for all problems:: rounded with dr moreno all orders per dr moreno consult alma
--- NOTE | 2020-08-01 10:00 | PC.NURSE ---
DISCHARGE INSTRUCTIONS GONE OVER AT THIS TIME. QUESTIONS ENCOURAGED AND ANSWERED AT THIS TIME.
--- NOTE | 2020-08-01 10:04 | PC.NURSE ---
PT WHEELCHAIRED OUT TO CAR AT THIS TIME X1 [facility] STAFF.
== END 2020-08-01 10:04 | disposition home or self-care (01) ==
LOC: ER 08:41 → 2ND 16:51 → OB 07-30 10:36
PROVIDERS: Orthopaedic Surgery; Admitting Provider Family Medicine; Emergency Provider Physician Assistant; Visit Provider Family Medicine
DX: N13.2 Hydronephrosis with renal and ureteral calculous obstruction (principal); N20.0 Calculus of kidney; M54.42 Lumbago with sciatica, left side; Z72.0 Tobacco use; Z79.899 Other long term (current) drug therapy; Z79.890 Hormone replacement therapy
CPT/HCPCS: 36415; 72131; 72148; 72195; 74018; 76376; 80048; 80053; 81001; 85025; 85651; 86140; 86328; 96365; 96372; 96375; 96376; 99284; G0378; J2405

== ENCOUNTER → 2020-08-06 11:49 | Outpatient (CLI) | payer OTHER, SELFPAY ==
--- NOTE | 2020-08-06 11:53 | XR_ITS ---
PROCEDURE: XR KUB CLINICAL INDICATION: ureteral stone COMPARISON: No exams were available for comparison FINDINGS: There is a 7 mm stone overlying the lower pole of the left kidney. Multiple pelvic calcifications are present and may be due to vascular calcifications. No acute bony finding. IMPRESSION: Left nephrolithiasis Dictated by: Dread Sullivan MD 08/06/2020 14:30 Dread Sullivan MD in [place] 08/06/2020 14:30
== END ==
PROVIDERS: PCP Family Medicine; Visit Provider Urology
DX: N20.1 Calculus of ureter (principal)
CPT/HCPCS: 74018

== ENCOUNTER → 2020-08-23 10:56 | Outpatient (CLI) | payer OTHER, SELFPAY ==
[2020-08-23 11:31] LABS: Basophils % 0.7 % (0.1-2.0); Eosinophils # 0.1 K/mm3 (0.0-0.4); Eosinophils % 1.2 % (0.1-12.0); Hematocrit 45.9 % (37.0-47.0); Hemoglobin 15.2 g/dL (12.2-16.2); Lymphocytes # 1.5 K/mm3 (0.7-4.5); Lymphocytes % 29.4 % (10-50); Mean Corpuscular HGB Conc 33.2 g/dL (31.8-35.4); Mean Corpuscular Hemoglobin 30.3 pg (27.0-31.2); Mean Platelet Volume 9.1 fl (7.4-10.4); Monocytes # 0.3 K/mm3 (0.1-1.0); Monocytes % 4.9 % (1.7-9.3); Neutrophils # 3.2 K/mm3 (1.8-7.8); Neutrophils % 63.8 % (37.0-80.0); Platelet Count 217 K/mm3 (142-424); Red Blood Count 5.04 M/mm3 (4.20-5.40); Red Cell Distribution Width 13.2 % (11.5-17.5)
[2020-08-23 12:18] LABS: Chloride 102 mmol/L (98-107); Potassium 4.8 mmoL/L (3.5-5.1); Sodium 141 mmol/L (136-145)
[2020-08-23 12:21] LABS: Anion Gap 11.8 mEq/L (5-15); Blood Urea Nitrogen 23 mg/dl (7-17); Carbon Dioxide 32 mmol/L (22.0-30.0); Estimated Glomerular Filt Rate 64 ml/min (>60); GFR (African American) 77 ML/MIN (>60); Glucose 107 mg/dl (74-100)
[2020-08-23 12:42] LABS: Coronavirus 19 IgG Antibody Positive (Negative); Coronavirus 19 IgM Antibody Negative (Negative)
== END ==
PROVIDERS: Visit Provider Urology
DX: N20.0 Calculus of kidney (principal); N20.1 Calculus of ureter; Z01.812 Encounter for preprocedural laboratory examination; Z86.16 Personal history of COVID-19; Z20.822 Contact with and (suspected) exposure to COVID-19
CPT/HCPCS: 36415; 80048; 85025; 86328

== ENCOUNTER 2020-08-24 08:49 | Day surgery (SDC) | payer OTHER, SELFPAY ==
[2020-08-22 08:50] VITALS: BMI 23.1
[2020-08-24] VITALS (11 sets, daily range): BP systolic 104–171; BP diastolic 70–91; PULSE 53–82; RESP 18; TEMP 36.1–36.7; O2SAT 93–100
--- NOTE | 2020-08-24 08:54 | XR_ITS ---
PROCEDURE: XR KUB CLINICAL INDICATION: left ureteral stone COMPARISON: CR XR KUB from 07/31/2020 CR XR KUB from 08/06/2020 FINDINGS: 7 mm stone was again noted overlying the lower pole of the left kidney. No obvious ureteral calculi. Suture line is present in the left aspect of the pelvis IMPRESSION: No change left nephrolithiasis Dictated by: Dread Sullivan MD 08/24/2020 11:39 Dread Sullivan MD in [place] 08/24/2020 11:39
[2020-08-24 09:53] LABS: POC Glucose,Bedside 99 (70-110)
--- NOTE | 2020-08-24 11:06 | P.PN_ITS ---
[facility] Anesthesia Checklist - Patient Identification Patient Identification: Arm Band, Verbal (Name & ) - Structural Data Admitted From: Home Planned Operative Procedure/s: eswl Consent for Planned Operative Procedure(s) Verified: Yes Verified Documents: History and Physical - NPO Status Verified Time NPO: 00:00 - Chart Verification Results Verified: CBC, BMP - Additional verifications Patient : No Anesthesia Reactions: Yes (n/v, shallow breathing) Hx Blood Transfusions: No Blood Transfusion Reaction: No Cephalosporin Allergy: No Previous Colonoscopy: No - Cardiovascular Assessment Heart Sounds: S1 & S2 Pulse Strength: Baseline Pulse Rhythm: Regular Peripheral Edema: No - Airway Assessment C-Spine Mobility Assessed: Yes TMJ Mobility Assessed: Yes Dentition: Good Dentition - Neurological Assessment Level of Consciousness: Awake, Alert, Appropriate Hx Seizures: No Numbness or tingling in extremities: No - Anesthesia Plan Anesthesia Risk discussed: Yes Anesthesia Plan: Verified ASA Class: II Anesthesia Type: General [facility] History I have reviewed the patient's past medical history: Yes Medical History: Denies:: Cancer, Diabetes Mellitus Type 1, Diabetes Mellitus Type 2, MRSA, Seizures *Have you ever received a pneumonia vaccine?: No *Have you received a flu vaccine this season?: No Other Medical History: Denies: Blood Transfusion Reaction Anesthesia experience/problems:: none Other Surgeries: Yes: Hysterectomy-Partial Amputation: No Fractures: No - *Social History Last grade of school completed: Advanced degree Smoking Status: Former smoker Alcohol Intake: current Alcohol Intake Frequency:: holidays/special occasions only Substance Use Type: other *Occupational Status:: employed *Travel in the last 8 weeks: None Family Hx:: Non-contributory
--- NOTE | 2020-08-24 11:06 | HMH.ANESI ---
[facility] Anesthesia Record Part I Intake, IV Amount: 1,000 Estimated blood loss (mL): 0 Urine output (mL): 0 Blood Products used (#): none Blood Pressure: 120/81 SaO2: 96 Pulse Rate: 82 Respiratory Rate: 18 Temperature: 97.0 F Patient is:: Drowsy, Stable Stable to PACU at:: 11:02
--- NOTE | 2020-08-24 13:56 | HMH.ANESII ---
[facility] Anesthesia Record Part II Discharge Time: 11:32 Destination: Surgical Day Care (OP Surgery) PACU nurse assessment reviewed?: Yes Patient Condition:: Good Anesthesia Complications:: None Swallowing reflex intact?: Yes Cyanosis?: No Blood Pressure: 148/85 Pulse Rate: 70 Temperature: 97.6 F Mental Status: Alert & Oriented Pain level:: 0 Nausea and/or vomitting:: None Intake, IV Amount: 0
--- NOTE | 2020-08-24 15:36 | P.OP_ITS ---
Date of procedure: 08/24/20 Pre-op Diagnosis:: 6 mm left lower pole stone Post-op Diagnosis:: Same Procedure performed:: Left ESWL Surgeon:: Farhat Livingston MD PERSONAL SERVICE REPRESENTATIVE:: Moy Katz Anesthesia: GETA Estimated blood loss (mL): 0 Clinical Note:: Patient is a 60-year-old white female recently seen while in the hospital for some severe back pain. CT at that time revealed a 6 mm stone in the left UPJ. It was felt that most of the patient's pain was musculoskeletal and on follow-up KUB a week ago the stone appeared in the left lower pole and not at the UPJ any longer. She never had any left-sided flank pain. Operative findings:: KUB shows stone in the left lower pole. Left ESWL went well no complications incurred. Operative note:: Patient taken to the operating room after informed consent was obtained. She was placed on the operating table in the supine position and general anesthesia administered. Preoperative antibiotics and sequential compression devices placed. She was positioned on the table so that F2 the lithotripter was focused onto the 6 mm stone in the left lower pole. 3000 shockwaves been delivered to the stone with a maximum energy of 6. There appeared to be good fragmentation of the stone on fluoroscopy during and after the procedure. She tolerated well and was transferred to the recovery in stable condition. Condition: stable Disposition: PACU Specimens:: None Complications:: None
== END 2020-08-24 12:20 | disposition home or self-care (01) ==
LOC: OR 08:50
PROVIDERS: PCP Family Medicine; Visit Provider Urology
PROC: (CPT 50590; principal; 2020-08-24 10:30)
DX: N20.1 Calculus of ureter (principal); Z88.2 Allergy status to sulfonamides; Z79.899 Other long term (current) drug therapy; M19.90 Unspecified osteoarthritis, unspecified site; Z79.890 Hormone replacement therapy
CPT/HCPCS: 50590; 74018; 82962; J2405

== ENCOUNTER → 2020-08-30 09:57 | Outpatient (CLI) | payer OTHER, SELFPAY ==
--- NOTE | 2020-08-30 10:01 | XR_ITS ---
PROCEDURE: XR KUB CLINICAL INDICATION: ureteral stone COMPARISON: CR XR KUB from 08/24/2020 FINDINGS: Previously noted stone along the lower pole left kidney is no longer apparent. No definite ureteral calculi evident. Suture line is present in both right and left aspect of the pelvis and there are pelvic phleboliths present. IMPRESSION: No acute findings. Dictated by: Dread Sullivan MD 08/30/2020 13:08 Dread Sullivan MD in [place] 08/30/2020 13:08
[2020-09-08 19:08] LABS: Specimen Type NOT PROVIDED
[2020-09-08 19:09] LABS: Ca oxalate dihydrate 30%; Photo TO FOLLOW
== END ==
PROVIDERS: PCP Family Medicine; Visit Provider Urology
DX: N20.1 Calculus of ureter (principal)
CPT/HCPCS: 74018; 82370

== ENCOUNTER → 2020-08-30 15:52 | Outpatient (CLI) | payer OTHER, SELFPAY | PROVIDERS: Visit Provider Urology | DX: N20.1 Calculus of ureter (principal) | CPT/HCPCS: 82370 ==

== ENCOUNTER 2020-09-06 15:00 | Outpatient (RCR) | payer OTHER, SELFPAY ==
--- NOTE | 2020-08-08 11:04 | HMH.PTOPEV ---
PT Outpatient Evaluation Rehab PT Outpatient Evaluation Start: 08/08/20 10:30 Freq: Status: Active Protocol: Document 08/08/20 10:30 PDESEROUX (Rec: 08/08/20 11:04 PDESEROUX [id number]) Electronically Signed By Ananth Dougherty, YULISSA 08/08/20 10:30 Outpatient Therapy Subjective History Subjective History Pt. is a 60 year old female who presents to Outpatient PT clinic w/ complaints of acute and constant R-sided LB P! of traumatic onset since 07/28/20 . Pt. reports she was bending over to lower her granddaughter into her play pen when she had a sharp P! in her LB that brought her to tears. Pt. reports admitting herself to the ER at [facility] where she had multiple diagnostic images taken and was given steroids, muscle relaxers, and pain medicine. Pt. reports having some symptom relief w/ medication and a heating pad. Recent diagnostic imaging positive for OA and mild bulging discs at levels: L3/L4 , L4/L5, and L5/S1. Pt. also reported a ureteral stone was ruled in through imaging on the L side. Pt. reports symptoms worsen w/ twisting, bending, and lifting. Pt. reports symptom relief w/ sidelying(L>R). Pt. denies having radicular symptoms into her RLE, and denies having any bowel/bladder dysfunction. Current medications include Prednisone, Baclofen, Toradol, Nabumetone, Estradiol, Vitamin D, Calcium, and a Probiotic. PMH includes a total Hysterectomy, RLE knee ATS sx., Vitamin D deficiency, and RLE Plantar Fasciitis. Pt . reports current medicational allergy includes Sulfa, denies previous/current history of self cancer. Chief Compla
== END 2020-10-09 16:00 | disposition home or self-care (01) ==
LOC: PT.CARL 15:00
PROVIDERS: PCP Urology; Visit Provider Family Medicine
DX: M54.5 Low back pain; M62.830 Muscle spasm of back
CPT/HCPCS: 20561; 97010; 97014; 97035; 97110; 97140; 97163; G0283

== ENCOUNTER → 2020-12-05 12:45 | Outpatient (CLI) | payer OTHER, SELFPAY ==
--- NOTE | 2020-12-05 12:47 | CT_ITS ---
PROCEDURE: CT SOFT TISSUE NECK WO CON CLINICAL HISTORY: NEOPLASM OF SOFT TISSUE OF NECK COMPARISON: No exams were available for comparison TECHNIQUE: Oral Contrast: None IV Contrast: None Axial images obtained with sagittal and coronal reformats. All CT scans at the facility use one or more dose reduction, viz: automated exposure control, ma/kV adjustment per patient size (including targeted exams where dose is matched to indication, i.e. head), or iterative reconstruction technique. FINDINGS: At the site of marker placement in the left lower cervical region at left level 5 node marzena station few scattered subcentimeter lymph nodes are noted. The largest of these measure 0.7 centimeters. No other significant lymphadenopathy. Multiple mild bilateral scattered subcentimeter lymph nodes noted, not significant by size criteria. The presence of beam hardening artifact from dental hardware slightly limits evaluation of the oropharynx. Otherwise the nasopharynx, larynx, hypopharynx are unremarkable without evidence of mucosal asymmetry. No focal mass lesions or suspicious findings. The vallecula and piriform sinuses are symmetric and demonstrates no evidence of mass lesions. Mild fullness of the bilateral tonsils noted, partially visualized due to beam hardening artifact from dental hardware. The parotid, submandibular and thyroid glands are unremarkable. The visualized vascular structures are unremarkable. No significant atherosclerotic disease. The parapharyngeal spaces are within normal limits. The visualized osseous structures are unremarkable. The paranasal sinuses and the mastoid air cells are clear. The visualized lungs are clear. IMPRESSION: Few scattered lymph nodes are noted at bilateral cervical marzena stations without evidence of lymphadenopathy. No focal mass lesions at the area of interest. No acute up abnormality is noted within the limitations of unenhanced study. Dictated by: Becky Dunn 12/05/2020 14:40 Becky Dunn in [place] 12/05/2020 14:40
== END ==
PROVIDERS: PCP Family Medicine; Visit Provider Family Medicine
DX: D49.2 Neoplasm of unspecified behavior of bone, soft tissue, and skin (principal)
CPT/HCPCS: 70490

== ENCOUNTER → 2021-05-27 11:39 | Outpatient (CLI) | payer OTHER, SELFPAY ==
[2021-05-27 14:17] LABS: Basophils # 0.1 K/mm3 (0-0.2); Basophils % 0.9 % (0.1-2.0); Eosinophils # 0.1 K/mm3 (0.0-0.4); Eosinophils % 0.9 % (0.1-12.0); Hemoglobin 14.6 g/dL (12.2-16.2); Lymphocytes # 1.8 K/mm3 (0.7-4.5); Lymphocytes % 32.5 % (10-50); Mean Corpuscular HGB Conc 32.3 g/dL (31.8-35.4); Mean Corpuscular Hemoglobin 30.9 pg (27.0-31.2); Mean Corpuscular Volume 95.6 fl (81-99); Mean Platelet Volume 12.5 fl (7.4-10.4); Monocytes # 0.4 K/mm3 (0.1-1.0); Monocytes % 6.6 % (1.7-9.3); Neutrophils # 3.2 K/mm3 (1.8-7.8); Platelet Count 207 K/mm3 (142-424); Red Blood Count 4.71 M/mm3 (4.20-5.40); Red Cell Distribution Width 13.2 % (11.5-17.5); White Blood Count 5.4 K/mm3 (4.8-10.8)
[2021-05-27 15:14] LABS: Alanine Aminotransferase 30 U/L (12-78); Albumin Level 4.4 g/dl (3.5-5.0); Albumin/Globulin Ratio 1.6 (1.1-1.8); Alkaline Phosphatase 86 U/L (38-126); Anion Gap 13.6 mEq/L (5-15); Aspartate Amino Transferase 36 U/L (14-36); Bilirubin,Total 0.3 mg/dl (0.2-1.3); Blood Urea Nitrogen 20 mg/dl (7-17); Calcium 9.4 mg/dl (8.4-10.2); Carbon Dioxide 30 mmol/L (22.0-30.0); Chloride 103 mmol/L (98-107); Estimated Glomerular Filt Rate 85 ml/min (>60); GFR (African American) 103 ML/MIN (>60); Globulin 2.7 g/dL (1.3-3.2); Glucose 92 mg/dl (74-100); Potassium 4.6 mmoL/L (3.5-5.1); Sodium 142 mmol/L (136-145); Total Protein,Serum 7.1 g/dl (6.3-8.2)
== END ==
PROVIDERS: Visit Provider Nurse Practitioner
DX: R53.82 Chronic fatigue, unspecified (principal)
CPT/HCPCS: 36415; 80053; 85025

== ENCOUNTER → 2021-05-28 06:57 | Outpatient (CLI) | payer OTHER, SELFPAY ==
--- NOTE | 2021-05-28 06:58 | MR_ITS ---
PROCEDURE: MR LUMBAR SPINE WO/W CON CLINICAL INDICATION: LOW BACK PAIN Low back pain radiating into the left leg. COMPARISON: MR MR LUMBAR SPINE WO CON from 07/31/2020 TECHNIQUE: Standard multiplanar multiecho sequences are performed without and with contrast. 3-D MIP and myelographic images are also rendered and reviewed FINDINGS: There is normal alignment. Spinal cord ends at the L1-L2 level. L1-L2: Unremarkable. L2-L3: Unremarkable. L3-L4: Concentric bulging disc. Along the right lateral and foraminal aspect of the disc there is a small broad-based disc osteophyte complex with some minimal posterior displacement of the right L3 nerve root. Mild facet and ligamentum hypertrophy is present at this level. L4-5: Bulging disc along with facet and ligamentum hypertrophic changes. There is a small broad-based left foraminal and lateral disc protrusion resulting in left lateral recess and foraminal narrowing which has developed since the previous exam. This is accentuated with the facet and ligamentum hypertrophy. There is bilateral lateral recess narrowing and bilateral foraminal narrowing greater on the left compared to the right. Borderline canal stenosis at this level which is also progressed since the previous exam. L5-S1: Degenerative disc disease with bulging disc along with facet and ligamentum hypertrophic changes. 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 No enhancing lesions are evident. No evidence of discitis or paraspinal mass. IMPRESSION: 1. L3-L4: Concentric bulging disc. Along the right lateral and foraminal aspect of the disc there is a small broad-based disc osteophyte complex with some minimal posterior displacement of the right L3 nerve root. Mild facet and ligamentum hypertrophy is present at this level. 2. L4-5: Bulging disc along with facet and ligamentum hypertrophic changes. There is a small broad-based left foraminal and lateral disc protrusion resulting in left lateral recess and foraminal narrowing which has developed since the previous exam. This is accentuated with the facet and ligamentum hypertrophy. There is bilateral lateral recess narrowing and bilateral foraminal narrowing greater on the left compared to the right. Borderline canal stenosis at this level which is also progressed since the previous exam. 3. L5-S1: Degenerative disc disease with bulging disc along with facet and ligamentum hypertrophic changes. Dictated by: Dread Sullivan MD 05/28/2021 10:10 Dread Sullivan MD in [place] 05/28/2021 10:10
== END ==
PROVIDERS: PCP Nurse Practitioner; Visit Provider Nurse Practitioner
DX: M54.50 Low back pain, unspecified (principal)
CPT/HCPCS: 72158; 76376; A9576

== ENCOUNTER 2021-05-28 17:00 | Outpatient (RCR) | payer OTHER, SELFPAY | END 2021-07-01 08:11 | disposition home or self-care (01) | LOC: PT.CARL 17:00 | PROVIDERS: PCP Family Medicine; Visit Provider Nurse Practitioner | DX: M54.50 Low back pain, unspecified (principal) | CPT/HCPCS: 97010; 97012; 97014; 97035; 97110; 97140; 97163; 97164; G0283 ==

== ENCOUNTER → 2021-06-07 08:31 | Outpatient (CLI) | payer OTHER, SELFPAY ==
[2021-06-07 10:33] LABS: Blood Urea Nitrogen 20 mg/dl (7-17); Chol/HDL Ratio 1.9 (1-3.5); Cholesterol 157 mg/dl (140-200); Estimated Glomerular Filt Rate 85 ml/min (>60); GFR (African American) 103 ML/MIN (>60); HDL Cholesterol 83 mg/dl (40-60); Triglycerides 74 mg/dl (30-150); VLDL Cholesterol 15 mg/dL (0-40)
[2021-06-07 10:44] LABS: Direct LDL Cholesterol 54.72 mg/dL (100-129)
== END ==
PROVIDERS: Visit Provider Family Medicine
DX: Z01.812 Encounter for preprocedural laboratory examination (principal); E78.00 Pure hypercholesterolemia, unspecified
CPT/HCPCS: 36415; 80061; 82565; 84520

== ENCOUNTER → 2021-06-14 12:47 | Outpatient (CLI) | payer OTHER, SELFPAY ==
--- NOTE | 2021-06-14 12:51 | CT_ITS ---
PROCEDURE INFORMATION: Exam: CT Neck With Contrast Exam date and time: 06/14/2021 12:51 PM Age: 61 years old Clinical indication: Mass, lump, or swelling in neck; Patient HX: Left sided soft tissue mass, bb placed on area of interest; Additional info: Neoplasm of soft tissue of neck TECHNIQUE: Imaging protocol: Computed tomography images of the neck with contrast. Radiation optimization: All CT scans at this facility use at least one of these dose optimization techniques: automated exposure control; mA and/or kV adjustment per patient size (includes targeted exams where dose is matched to clinical indication); or iterative reconstruction. Contrast material: ISOVUE; Contrast volume: 75 ml; Contrast route: IV; COMPARISON: CT SOFT TISSUE NECK WO CON 12/05/2020 12:49 PM FINDINGS: Nasopharynx: Unremarkable. Oropharynx: Unremarkable. No significant tonsillar enlargement. Hypopharynx: Unremarkable. Larynx: Unremarkable. Normal epiglottis. Retropharyngeal space: Unremarkable. Submandibular/Parotid glands: Normal. Glands are normal in size. Thyroid: Normal. No enlarged or calcified nodules. Lymph nodes: Unremarkable. No lymphadenopathy. Trachea: Visualized trachea is unremarkable. Lungs: Unremarkable as visualized. Bones/joints: Mild intervertebral disc space narrowing of C4-C5. Alignment is satisfactory. No acute fracture. Soft tissues: Unremarkable. No significant soft tissue swelling. Deep to the area of the BB marker there is no evidence of mass. This represents the cephalad aspect of left trapezius muscle. IMPRESSION: No evidence of cervical mass. No evidence of acute process within the neck.
== END ==
PROVIDERS: PCP Family Medicine; Visit Provider Family Medicine
DX: D49.2 Neoplasm of unspecified behavior of bone, soft tissue, and skin (principal)
CPT/HCPCS: 70491; Q9967

== ENCOUNTER → 2021-12-20 12:01 | Outpatient (CLI) | payer OTHER, SELFPAY | PROVIDERS: PCP Family Medicine; Visit Provider Family Medicine | DX: Z20.822 Contact with and (suspected) exposure to COVID-19 (principal) | CPT/HCPCS: C9803; U0003; U0005 ==

== ENCOUNTER 2022-01-04 15:35 | Emergency (ER) | payer OTHER, SELFPAY ==
[2022-01-04 16:20] VITALS: BP 117/74; PULSE 91; RESP 19; TEMP 36.8; O2SAT 98; BMI 23.3
--- NOTE | 2022-01-04 16:37 | HMH.EDUTC ---
[facility] [place] Clinical Impression: Viral syndrome Disposition: Home, Self-Care Condition on Discharge: Good Instructions: Guaifenesin, DI for COVID-19 (Suspected or Confirmed ), Preventing the Spread of Coronavirus Discharge Instructions Additional Instructions: *Monitor Temp, Over the counter Motrin or Tylenol as directed/as needed Tylenol every 4 hours and Motrin every 6 hours (as long as your family doctor has told you that you can take it) for fever or pain. and straight to ER if unable to lower temp less than 101.0 after medication given *Warm salt water gargles may help to soothe the throat *Throat Lozenges *Warm fluids like tea with honey may help to soothe the throat *Sleep elevated *Humidifier/Vaporizer *Flonase 2 sprays in each nostril daily but be aware that it may take 2-3 days before you notice improvement Make sure to drink plenty of water with the Mucinex Follow up IMMEDIATELY for new or worsening symptoms or no Noticeable improvement over the next 48-72 hours. 911 for difficulty breathing or swallowing You were tested for today for COVID19 your test result should be back in the next 24-48 hours, your results will be available on the [facility] portal you can view your results there Prescriptions: guaiFENesin [Mucinex 600mg tablet] 1 - 2 tab PO Q12HP PRN #20 tab PRN Reason: Congestion Transmission Status: Received by [id number] Referrals: Yordy Stubbs MD [Primary Care Provider] - As needed Time of Disposition: 16:44 Medical Decision Making - Paolo Inquiry Pt receiving controlled substance: No Paolo was queried for this patient: No Vital Signs: 01/04/22 16:20 01/04/22 16:39 Temperature 98.3 F 98.3 F Temperature Source Oral Pulse Rate 91 H Pulse Rate [Right Brachial] 91 H Respiratory Rate 19 19 Blood Pressure 117/74 Blood Pressure [Right Arm] 117/74 Blood Pressure Mean [Right Arm] 88 Blood Pressure Source [Right Arm] Automatic Cuff Blood Pressure Position [Right Arm] Sitting 02 Sat by Pulse Oximetry 98 Oxygen Delivery Method Room Air Orders (Tests/Meds): ORDERS Category Date Time Status Covid-19 Nasal PCR ([facility]) Routine Lab 01/04/22 16:10 Received [facility] [place] - General Stated complaint: covid test, cough,SOA deanna Time Seen by Provider: 01/04/22 16:37 Mode of Arrival: Ambulatory Source of Information: Patient Limitations: No Limitations Description of Symptoms (Recalled from Triage Doc. by RN): PATIENT C/O DRY COUGH AND CONGESTION X 1 WEEK. REQUESTING COVID TEST HEENT Symptoms (Recalled from RN notes): Yes Resp Symptoms (Recalled from RN notes): Yes Skin Symptoms (Recalled from RN notes): No MS Symptoms (Recalled from RN notes): No Functional Status (Recalled from RN notes): WNL - History of Present Illness Provider Complaint: Patient states that she was seen and treated by her PCP a week or two ago for sinus infection States that she has finished all the medication and is feeling a little better but she is still having cough but hasnt been taking the cough pearls States that she has been around someone that had a positive home test and wanted to get tested for COVID - Related Data Home Medications Medication Instructions Recorded Confirmed estradioL [Estradiol] 0.5 mg PO Q48H 05/30/18 08/30/20 Calcium Phosphate Trib/Vit D3 1 each PO DAILY 08/22/20 08/30/20 [Calcium + Vitamin D3 Gummies] Cholecalciferol (Vitamin D3) 2,000 unit PO DAILY 08/22/20 08/30/20 [Vitamin D3 1,000 Unit Cap] Nabumetone 750 mg PO BID 08/22/20 08/30/20 Previous Rx's Medication Instructions Recorded Baclofen [Lioresal 10mg tablet] 10 mg PO TIDP PRN 7 Days #21 tab 08/01/20 guaiFENesin [Mucinex 600mg tablet] 1 - 2 tab PO Q12HP PRN #20 tab 01/04/22 Allergies Allergy/AdvReac Type Severity Reaction Status Date / Time Sulfa (Sulfonamide Allergy Verified 08/30/20 10:24 Antibiotics) - Worker's Comp Is this a Worker's Comp case?: No [facility]
[2022-01-04 16:39] VITALS: BP 117/74; PULSE 91; RESP 19; TEMP 36.8; O2SAT 98
== END 2022-01-04 16:59 | disposition home or self-care (01) ==
PROVIDERS: Emergency Provider Nurse Practitioner; PCP Family Medicine
DX: U07.1 COVID-19 (principal); B34.9 Viral infection, unspecified; R06.02 Shortness of breath; Z79.52 Long term (current) use of systemic steroids; Z79.890 Hormone replacement therapy; Z79.899 Other long term (current) drug therapy; Z88.2 Allergy status to sulfonamides; Z87.442 Personal history of urinary calculi; Z87.891 Personal history of nicotine dependence
CPT/HCPCS: 99213; C9803; G0463; U0003; U0005

== ENCOUNTER 2022-01-11 08:11 | Emergency (ER) | payer OTHER, SELFPAY ==
--- NOTE | 2022-01-11 08:30 | XR_ITS ---
PROCEDURE INFORMATION: Exam: XR Chest Exam date and time: 01/11/2022 8:29 AM Age: 62 years old Clinical indication: Cough TECHNIQUE: Imaging protocol: Radiologic exam of the chest. Views: 2 views. COMPARISON: CR CXR CHEST(2 VIEWS-NOT PORTABLE) 07/10/2017 10:53 AM FINDINGS: Lungs: Unremarkable. No consolidation. Pleural spaces: Unremarkable. No pleural effusion. No pneumothorax. Heart/Mediastinum: Unremarkable. No cardiomegaly. Bones/joints: Unremarkable. IMPRESSION: No acute findings.
[2022-01-11 08:34] VITALS: BP 103/76; PULSE 94; RESP 17; TEMP 36.4; O2SAT 98; BMI 23.3
--- NOTE | 2022-01-11 09:01 | HMH.EDUTC ---
[facility] [place] Clinical Impression: COVID-19 Acute bronchitis Qualifiers: Bronchitis organism: unspecified organism Qualified Code(s): J20.9 - Acute bronchitis, unspecified Disposition: Home, Self-Care Condition on Discharge: Good Instructions: DI for COVID-19 (Suspected or Confirmed ), Preventing the Spread of Coronavirus Discharge Instructions Additional Instructions: Drink plenty of fluids. Take tylenol or ibuprofen for pain or fever. Take the medications as directed. Follow up with your regular doctor. GO TO THE ER FOR ANY WORSENING SYMPTOMS The cough medication (promethazine dm) will make you drowsy, so don't drive or operate heavy machinery after taking it. Prescriptions: Promethazine/Dextromethorphan [Promethazine-Dm Syrup] 5 ml PO Q6HP PRN #240 ml PRN Reason: Cough [email or web address] Benzonatate [Benzonatate 100mg cap] 100 mg PO TIDP PRN #30 cap PRN Reason: Cough Transmission Status: [email or web address] methylPREDNISolone [Medrol] 4 mg PO DIRECTED 6 Days #21 packet Transmission Status: [email or web address] Nirmatrelvir/Ritonavir [Paxlovid 2X150 mg-100 mg (Eua)] 1 packet PO DIRECTED 5 Days #1 packet Transmission Status: [email or web address] Azithromycin [Z-Felipe 250mg Tab*] 250 mg PO UD DOSE PK #6 tab Transmission Status: [email or web address] Referrals: Yordy Stubbs MD [Primary Care Provider] - Time of Disposition: 09:14 Medical Decision Making - Medical Records Medical records reviewed: No: I reviewed the patient's medical records. - Paolo Inquiry Pt receiving controlled substance: No Vital Signs: 01/11/22 08:34 01/11/22 09:26 Temperature 97.6 F 97.6 F Temperature Source Oral Pulse Rate 94 H Pulse Rate [Left Radial] 94 H Respiratory Rate 17 17 Blood Pressure 103/76 L Blood Pressure [Right Arm] 103/76 L Blood Pressure Mean [Right Arm] 85 02 Sat by Pulse Oximetry 98 [facility] [place] - General Stated complaint: fever, covid pos 01/04 Time Seen by Provider: 01/11/22 08:45 Description of Symptoms (Recalled from Triage Doc. by RN): patient comes in with covid symptoms. patient tested covid postive 01/04. patient states that she still feels bad, running a fever, cough, body aches. HEENT Symptoms (Recalled from RN notes): Yes Resp Symptoms (Recalled from RN notes): Yes Skin Symptoms (Recalled from RN notes): No MS Symptoms (Recalled from RN notes): No Functional Status (Recalled from RN notes): wnl - History of Present Illness Provider Complaint: She tested covid postive 01/04. patient states that she still feels bad, running a fever, cough, body aches. She started to feel better around 2 days ago, but then her current symptoms began to worse. - Related Data Home Medications Medication Instructions Recorded Confirmed estradioL [Estradiol] 0.5 mg PO Q48H 05/30/18 08/30/20 Calcium Phosphate Trib/Vit D3 1 each PO DAILY 08/22/20 08/30/20 [Calcium + Vitamin D3 Gummies] Cholecalciferol (Vitamin D3) 2,000 unit PO DAILY 08/22/20 08/30/20 [Vitamin D3 1,000 Unit Cap] Nabumetone 750 mg PO BID 08/22/20 08/30/20 Previous Rx's Medication Instructions Recorded Baclofen [Lioresal 10mg tablet] 10 mg PO TIDP PRN 7 Days #21 tab 08/01/20 guaiFENesin [Mucinex 600mg tablet] 1 - 2 tab PO Q12HP PRN #20 tab 01/04/22 Azithromycin [Z-Felipe 250mg Tab*] 250 mg PO UD DOSE PK #6 tab 01/11/22 Benzonatate [Benzonatate 100mg 100 mg PO TIDP PRN #30 cap 01/11/22 cap] Nirmatrelvir/Ritonavir [Paxlovid 1 packet PO DIRECTED 5 Days #1 01/11/22 2X150 mg-100 mg (Eua)] packet Promethazine/Dextromethorphan 5 ml PO Q6HP PRN #240 ml 01/11/22 [Promethazine-Dm Syrup] methylPREDNISolone [Medrol] 4 mg PO DIRECTED 6 Days #21 01/11/22 packet Allergies Allergy/AdvReac Type Severity Reaction Status Date / Time Sulfa (Sulfonamide Allergy Verified 08/30/20 10:24 Antibiotics)
[2022-01-11 09:26] VITALS: BP 103/76; PULSE 94; RESP 17; TEMP 36.4
== END 2022-01-11 09:34 | disposition home or self-care (01) ==
PROVIDERS: Emergency Provider Nurse Practitioner Family; PCP Family Medicine
DX: N20.0 Calculus of kidney; Z79.52 Long term (current) use of systemic steroids; Z88.2 Allergy status to sulfonamides; Z87.891 Personal history of nicotine dependence
CPT/HCPCS: 71046; 99213; G0463

== ENCOUNTER 2023-07-19 08:55 | Emergency (ER) | payer OTHER, SELFPAY ==
[2023-07-19 09:15] VITALS: BP 120/76; PULSE 91; RESP 22; TEMP 36.5; O2SAT 98; BMI 23.3
[2023-07-19 09:37] LABS: UTC Strep Screen (Rapid) Negative (Negative)
--- NOTE | 2023-07-19 09:41 | EXP.UTC ---
Discharge Plan Disposition Patient Disposition: Home, Self-Care Condition: Good Prescriptions Prescriptions: New prednisone [prednisone] 20 mg tablet 20 mg PO BID 5 Days Qty: 10 0RF amoxicillin-pot clavulanate 875-125 mg Tablet 1 tab PO Q12H Qty: 20 0RF guaifenesin [Mucinex] 600 mg tablet extended release 12hr 1,200 mg PO BID PRN (Reason: cough) Qty: 20 0RF promethazine-DM 6.25-15 mg/5 mL syrup 5 ml PO Q6H PRN (Reason: cough) Qty: 118 0RF No Action baclofen 10 MG tablet 10 mg PO TIDP PRN (Reason: Muscle Spasm) 7 Days Qty: 21 0RF rosuvastatin 10 mg tablet 10 mg PO DAILY Patient Comments: TAKE 1 TABLET BY MOUTH EVERY DAY cetirizine 10 mg Capsule 10 mg PO DAILY estradiol 0.5 MG tablet 0.5 mg PO Q48H nabumetone 750 MG tablet 750 mg PO BID cholecalciferol (vitamin D3) 1,000 UNIT capsule 2,000 unit PO DAILY calcium phosphate-vitamin D3 1 EACH tablet,chewable 1 each PO DAILY Referrals Follow up/Referrals: Yordy Stubbs MD [Primary Care Provider] - See instructions Activity Restrictions/Add. Instructions Additional Instructions/Restrictions: Start antibiotic today. Be sure to complete entire prescription even if feeling better Monitor temp. Tylenol every 4 hours as needed and / or ibuprofen every 6 hours as needed ( As long as your primary care physician has told you that it ok to take both. For fever/aches/pains ER if no less than 101 despite Tylenol or Motrin Humidifier/vaporizer or hot steamy shower Mucinex during the day for your cough and cough suppressant only at night. Be sure to drink lots of water. *Promethazine DM cough syrup will cause drowsiness. Use only at night. No driving, operating machinery or caring for small children after taking it *Start steroid today. Helps with inflammation therefore, cough and wheezing. Follow directions on the package. Reviewed side effects. Patient reports taking them before. Follow up IMMEDIATELY for new or worsening of symptoms OR no noticeable improvement over the next 48-72 hours. 911 immediately for any life threatening symptoms such as chest pain or difficulty breathing Clinical Impressions Clinical Impression: Bronchitis Sinusitis Qualifiers: Sinusitis location: unspecified location Chronicity: unspecified Qualified Code(s): J32.9 - Chronic sinusitis, unspecified Instructions Patient Instructions: DI for Sinusitis, Sinusitis, Acute Bronchitis Discharge ED Provider: Amna German [facility] [place] General Stated complaint: cough, congestion, runny nose Mode of Arrival: Ambulatory Source of Information: Patient Limitations: No Limitations Time Seen by Provider: 07/19/23 09:41 Description of Symptoms (Recalled from Triage Doc. by RN): PATIENT C/O HEAD CONGESTION, PRODUCTIVE COUGH, AND SORE THROAT SINCE THURSDAY HEENT Symptoms (Recalled from RN notes): Yes Resp Symptoms (Recalled from RN notes): Yes Skin Symptoms (Recalled from RN notes): No MS Symptoms (Recalled from RN notes): No Functional Status (Recalled from RN notes): WNL History of Present Illness Provider Complaint: Patient states that she started getting sick several days ago States that she has been having sinus congestion and pressure, drainage in the back of her throat, coughing up some yellowish colored mucous at times and sore throat States that she took a home COVID test and it was negative States that today she wasnt feeling any better so she came in to get checked Related Data Home Medications Medication Instructions Recorded Confirmed estradiol 0.5 mg tablet 0.5 mg PO Q48H HORMONE REPLACEMENT 05/30/18 07/19/23 calcium phosphate 250 mg-vitamin 1 each PO DAILY Supplement 08/22/20 07/19/23 D3 5 mcg (200 unit) chewable tablet cholecalciferol (vitamin D3) 25 2,000 unit PO DAILY Supplement 08/22/20 07/19/23 mcg (1,000 unit) capsule nabumetone 750 mg tablet 750 mg PO BID [facility]
[2023-07-19 09:55] VITALS: BP 120/76; PULSE 91; RESP 22; TEMP 36.5; O2SAT 98
== END 2023-07-19 09:59 | disposition home or self-care (01) ==
PROVIDERS: Emergency Provider Nurse Practitioner; PCP Family Medicine
DX: J20.9 Acute bronchitis, unspecified (principal); J01.90 Acute sinusitis, unspecified; R51.9 Headache, unspecified; R05.9 Cough, unspecified; R09.81 Nasal congestion; R07.0 Pain in throat; R09.89 Other specified symptoms and signs involving the circulatory and respiratory systems; E78.5 Hyperlipidemia, unspecified; Z87.891 Personal history of nicotine dependence
CPT/HCPCS: 87880; 99212; 99214; G0463

== ENCOUNTER 2023-10-13 15:00 | Outpatient (RCR) | payer BC, SELFPAY | END 2023-10-21 14:36 | disposition home or self-care (01) | LOC: PT 15:00 | PROVIDERS: PCP Family Medicine; Referring Provider Physician Assistant; Visit Provider Orthopaedic Surgery | DX: G56.03 Carpal tunnel syndrome, bilateral upper limbs (principal) | CPT/HCPCS: 20560; 97010; 97014; 97035; 97110; 97140; 97163; 97164; 97530; G0283 ==

== ENCOUNTER 2024-07-25 08:51 | Outpatient (CLI) | payer BC, SELFPAY ==
--- NOTE | 2024-07-25 09:01 | XR_ITS ---
FINAL REPORT TECHNIQUE: Bone densitometry calculations of the lumbar spine and left hip were obtained. CLINICAL HISTORY: SCREENING COMPARISON: None FINDINGS: Using L1-4, the bone mineral density of the spine is 0.945 g/cm2, corresponding to T-score of -0.9 and a Z score of 0.8. This is within the range of normal limits. Using the left hip, the bone mineral density of the femoral neck is 0.730 g/cm2, corresponding to a T-score of -1.1 and a Z-score of 0.4. This is within the range of osteopenia. Using the right hip, the bone mineral density of the femoral neck is 0.689 g/cm2, corresponding to a T-score of -1.4 and a Z-score of 0.0. This is within the range of osteopenia. FRAX not reported because the patient is being treated for osteoporosis. NOTE: T-score: Standard deviation compared with peak bone mass of young adult mean. *Following the recommendations of the International Society of Bone densitometry, classification of hip BMD is based on the lower of two T-scores; total hip or femoral neck. IMPRESSION: 1. Bone mineral density of the lumbar spine within the range of normal limits. 2. Bone mineral density of the left femoral neck within the range of osteopenia. Reviewed, Interpreted and Dictated by Sayda Long MD Transcribed by Jasmyne Taylor Authenticated and [facility]
== END 2024-07-25 23:59 | disposition home or self-care (01) ==
LOC: RAD 08:52
PROVIDERS: PCP Family Medicine; Visit Provider Nurse Practitioner Family
DX: M85.88 Other specified disorders of bone density and structure, other site (principal)
CPT/HCPCS: 77080

== ENCOUNTER 2025-07-07 08:30 | Outpatient (CLI) | payer MEDICARE, OTHER, SELFPAY ==
--- NOTE | 2025-07-07 08:33 | CT_ITS ---
FINAL REPORT TECHNIQUE: Thin section axial images were obtained from the lung apices to the upper abdomen by computed tomography. Reformatted images were obtained and reviewed. This study was performed with techniques to keep radiation doses al low as reasonably achievable (ALARA). Individualized dose reduction techniques using automated exposure control or adjustment of mA and/or kV according to the patient's size were employed. CLINICAL HISTORY: lung screening, former smoker x 3 yrs, smoked 1 1/2 packs per year for 10 yrs. exposed to second hand smoke COMPARISON: None FINDINGS: CHEST CT LOW DOSE 65-year-old female, former smoker for 3 years, 15-tvnn-[id number] history CTDI vol (mGy): 2.90 DLP (mGy-cm): 97.68 There is no axillary adenopathy. Calcified subcarinal lymph nodes are present. Otherwise, there is no mediastinal or hilar mass or adenopathy. The heart is normal in size. There is no pericardial or pleural effusion. Lung window images demonstrate no suspicious infiltrate or nodule. Limited images of the upper abdomen are unremarkable. IMPRESSION: Lung-RADS category 1. Recommend 12 month follow up low dose chest CT. Reviewed, Interpreted and Dictated by Javier Lema MD Transcribed by Ciarar Lara Authenticated and [facility]
== END 2025-07-07 23:59 | disposition home or self-care (01) ==
LOC: RAD 08:31
PROVIDERS: PCP Family Medicine; Visit Provider Family Medicine
DX: Z12.2 Encounter for screening for malignant neoplasm of respiratory organs (principal); Z87.891 Personal history of nicotine dependence; I89.8 Other specified noninfective disorders of lymphatic vessels and lymph nodes; Z77.22 Contact with and (suspected) exposure to environmental tobacco smoke (acute) (chronic)
CPT/HCPCS: 71271